=== PATIENT | male | born 1990 ===

== ENCOUNTER 2019-10-21 20:04 | Emergency (ER) | payer SELFPAY ==
[~2019-10-21] VITALS: Ht 175.3 cm; Wt 81.0 kg
--- NOTE | 2019-10-21 20:21 | NUR ---
pt moved to room 4
== END 2019-10-21 21:05 ==
LOC: ER 20:05
DX: Z04.1 Encounter for examination and observation following transport accident (principal); V49.88XA Car occupant (driver) (passenger) injured in other specified transport accidents, initial encounter; Y93.89 Activity, other specified; Y92.413 State road as the place of occurrence of the external cause; Y99.9 Unspecified external cause status
CPT/HCPCS: 99283